=== PATIENT | male | born 1975 | race Caucasian/White ===

== ENCOUNTER 2017-12-11 19:50 | Emergency (ER) | payer SELFPAY ==
[~2017-12-11] VITALS: Ht 175.3 cm; Wt 79.4 kg
[2017-12-11 19:52] VITALS: Ht 175.3 cm; Wt 79.4 kg
[2017-12-11 20:56] VITALS: BP 128/75
== END 2017-12-11 21:23 | disposition home or self-care (01) ==
LOC: ED 19:50
DX: S00.01XA Abrasion of scalp, initial encounter (principal); H53.8 Other visual disturbances; W18.30XA Fall on same level, unspecified, initial encounter; Y93.01 Activity, walking, marching and hiking; Y92.89 Other specified places as the place of occurrence of the external cause; Y99.8 Other external cause status